=== PATIENT | female | born 1930 | race Caucasian/White ===

== ENCOUNTER 2017-04-10 12:42 | Emergency (ER) | payer MEDICARE, OTHER ==
[~2017-04-10] VITALS: Ht 170.2 cm; Wt 49.9 kg
[~2017-04-10 12:42] MED LIST: COUMADIN7.5 MG PO; DIGOXIN125 MCG PO; LORAZEPAM1 MG PO; NYSTATIN-TRIAMC15 G1 TP; PRIMIDONE50 MG PO; TOPROL XL100 MG PO; TOPROL XL50 MG PO; TRICOR145 MG PO; ULTRAM50 MG PO; WARFARIN PO; ZESTRIL10 MG PO
[2017-04-10 13:55] LABS: BASOPHILS % 0.2 % (0.0-1.0); EOSINOPHILS # (AUTO) 0.1 (0.0-0.4); EOSINOPHILS % 0.7 % (0.0-6.0); HEMOGLOBIN 14.4 g/dL (12.0-16.0); LYMPHOCYTES # (AUTO) 1.8 (1.0-3.2); MEAN CORPUSCULAR HEMOGLOBIN 33.3 pg (28-32); MEAN CORPUSCULAR HGB CONC 33.5 g/dL (31-35); MEAN CORPUSCULAR VOLUME 99.3 fL (81-99); MONOCYTES % 10.9 % (4.4-11.3); NEUTROPHILS # (AUTO) 5.9 (2.1-6.9); NEUTROPHILS % 67.9 % (38.7-80.0); PLATELET COUNT 179 x10e3/uL (140-360); RED BLOOD COUNT 4.33 x10e6/uL (3.6-5.1); RED CELL DISTRIBUTION WIDTH 13.3 % (11.7-14.4)
[2017-04-10 14:05] LABS: INR 1.02; PARTIAL THROMBOPLASTIN TIME 30.1 seconds (23.8-35.5); PROTHROMBIN TIME 13.9 seconds (11.9-14.5)
[2017-04-10] MEDS ORDERED: DILTIAZEM HCL 5 MG/ML 5 ML VIAL IV STA (14:12)
[2017-04-10 14:14] LABS: ALBUMIN 3.7 g/dL (3.5-5.0); ALBUMIN/GLOBULIN RATIO 0.7 (0.8-2.0); ANION GAP 14.9 mmol/L (8-16); CALCIUM 9.6 mg/dL (8.4-10.2); CREATININE, SERUM 1.01 mg/dL (0.57-1.11); POTASSIUM 4.9 mmol/L (3.5-5.1)
[2017-04-10 14:21] LABS: CREATINE KINASE MB 0.8 ng/mL (0.00-5.00); TROPONIN I 0.014 ng/mL (0-0.300)
[2017-04-10] MEDS ORDERED: ALTEPLASE 50 MG/VIAL (29 MILLION IU) IV ONE ×2 (14:30)
--- NOTE | 2017-04-10 14:52 | Diagnostic Imaging Report ---
History:87-year-old female with facial droop Comparison studies:None Technique: Axial images were obtained from the skull base to the vertex. Coronal and sagittal images reconstructed from the axial data. Intravenous contrast: None Findings: Scalp/skull: No abnormalities. Extra-axial spaces: No masses. No fluid collections. Brain sulci: Moderately prominent. Ventricles: Moderate compensatory dilatation. No hydrocephalus. Parenchyma: Periventricular and supraventricular white matter hypodensities in the supratentorial white matter are small vessel ischemic changes. No acute intracranial hemorrhage. Sellar/suprasellar region: No abnormalities. Craniocervical junction: Patent foramen magnum. No Chiari one malformation. Incidental findings: Atherosclerotic calcifications in the carotid siphons and distal vertebral arteries. Impression: No acute abnormalities intracranial hemorrhage or cortical infarct. Chronic findings: 1. Moderate generalized volume loss. 2. Moderate supratentorial chronic microvascular ischemic changes. Findings discussed with Dr. Sylvester at 1:19 PM on 04/10/17 Signed by: Dr. Gwendolyn Clancy M.D. on 04/10/2017 2:48 PM
[2017-04-10] MEDS ORDERED: DILTIAZEM HCL 100 ML IV ONE (15:00)
== END 2017-04-10 15:38 | disposition short-term general hospital (02) ==
LOC: ER 12:42
DX: R53.1 Weakness (principal); R29.810 Facial weakness; I63.9 Cerebral infarction, unspecified; I48.2 Chronic atrial fibrillation; I10 Essential (primary) hypertension
CPT/HCPCS: 36415; 70450; 80053; 82550; 82553; 82948; 84484; 85025; 85610; 85730; 93005; 99284

== ENCOUNTER 2017-06-10 01:28 | Emergency (ER) | payer MEDICARE, OTHER ==
[~2017-06-10] VITALS: Ht 170.2 cm; Wt 49.9 kg
--- OUTSIDE RECORDS SUMMARY | 2017-06-10 01:31 | XMS REPORT ---
Author [facility] Address Unknown Phone Unavailable Care Team Providers Care Review Rn Name Role Phone VICTORINO SYLVESTER Unavailable Unavailable Problems This patient has no known problems. Allergies, Adverse Reactions, Alerts This patient has no known allergies or adverse reactions. Medications This patient has no known medications. Results Test Description Test Time Test Comments Text Results Atomic Results Result Comments CT BRAIN WO [place] [address] Patient Name: LILIANE GALLO MR #: [id number] : 1930 Age/Sex: 87/F Req # : [id number] Adm Physician: Ordered by: VICTORINO SYLVESTER MD Report #: [id number] Location: ER Room/Bed: Procedure: [id number] 0003 CT/CT BRAIN WO Exam Date: 04/10/17 Exam Time: 1251 REPORT STATUS: Signed History:87-year-old female with facial droop Comparison studies:None Technique: Axial images were obtained from the skull base to the vertex. Coronal and sagittal images reconstructed from the axial data. Intravenous contrast: None Findings: Scalp/ skull: No abnormalities. Extra-axial spaces: No masses. No fluid collections. Brain sulci: Moderately prominent. Ventricles: Moderate compensatory dilatation. No hydrocephalus. Parenchyma: Periventricular and supraventricular white matter hypodensities in the supratentorial white matter are small vessel ischemic changes. No acute intracranial hemorrhage. Sellar/suprasellar region: No abnormalities. Craniocervical junction: Patent foramen magnum. No Chiari one malformation. Incidental findings: Atherosclerotic calcifications in the carotid siphons and distal vertebral arteries. Impression: No acute abnormalities intracranial hemorrhage or cortical infarct. Chronic findings: 1. Moderate generalized volume loss. 2. Moderate supratentorial chronic microvascular ischemic changes. Findings discussed with Dr. Sylvester at 1:19 PM on 04/10/17 Signed by: Dr. Li Clancy M.D. on 04/10/2017 2:48 PM Dictated By: LI CLANCY MD [id number] Transcribed By: LÁZARO on 04/10/17 1448 COPY TO: VICTORINO SYLVESTER MD
[2017-06-10] MEDS ORDERED: DIATRIZOATE MEGL/DIATRIZOA SOD 30 ML BTL PO ONE (01:59)
--- NOTE | 2017-06-10 02:40 | Diagnostic Imaging Report ---
ABDOMEN-1VIEW (KUB) Clinical history: \S\with Gastrografin to check peg placement \[id number] \S\0205 \S\Y Technique: AP view abdomen Comparison: 11/08/2015 Findings: G-tube overlies the gastric body with contrast noted in the stomach after Gastrografin injection. Contrast throughout the colon may be related to a prior administration. Impression: G-tube in expected position. Signed by: Dr Citlaly Michael MD on 06/10/2017 2:37 AM
[2017-06-10] MEDS ORDERED: NITROGLYCERIN 0.4 MG SUBL ONE (02:55)
[2017-06-10] MEDS ORDERED: NITROGLYCERIN 0.4 MG SUBL SL ONE (03:00)
== END 2017-06-10 03:22 ==
LOC: ER 01:28
PROC: 0D20XUZ Change Feeding Device in Upper Intestinal Tract, External Approach (ICD-10-PCS; principal; 2017-06-10)
DX: Z43.1 Encounter for attention to gastrostomy (principal); F03.90 Unspecified dementia, unspecified severity, without behavioral disturbance, psychotic disturbance, mood disturbance, and anxiety; R47.01 Aphasia; R47.1 Dysarthria and anarthria; I10 Essential (primary) hypertension; I48.91 Unspecified atrial fibrillation; Z86.73 Personal history of transient ischemic attack (TIA), and cerebral infarction without residual deficits
CPT/HCPCS: 74018; 99283